=== PATIENT | male | born 1960 | race Caucasian/White ===

== ENCOUNTER → 2016-12-10 | Outpatient (CLI) | payer OTHER ==
--- NOTE | 2016-12-10 11:13 | CT ---
EXAMINATION TYPE: CT abdomen pelvis wo con DATE OF EXAM: 12/10/2016 COMPARISON: NONE INDICATION: Renal stone DLP: 711.9 mGycm, Automated exposure control for dose reduction was used. CONTRAST: 0 mL of Omnipaque 300. Study performed without Oral Contrast TECHNIQUE: Axial images were obtained from above the diaphragm to the pubic rami in the axial plane a t 5 mm thick sections. Reconstructed images are reviewed on the computer in the coronal plane. FINDINGS: Limited CT sections are obtained the lung bases. The lung bases are clear. CT ABDOMEN: Liver: Normal Spleen: Normal Pancreas: Normal Adrenal glands: The adrenal glands are normal. Gallbladder: Normal Kidneys: No masses are evident. There is a moderate left hydronephrosis. Hydroureter is present. This extends to the mid pelvis. There is a 0.6 cm obstructing distal left ureteral stone. This is above t he ureteral vesicle junction. No cysts are present. There are inferior pole left renal stones measur ing 0.3 to 0.5 cm in size. Aorta: Vascular calcification is within the aorta. Inferior vena cava: Normal. CT PELVIS: Loops of bowel within the abdomen and pelvis are normal. There are loops of bowel which are incom pletely distended or lack oral contrast limiting their evaluation. Appendix: Normal as visualized. Urinary bladder: Normal. Genitourinary structures: Prostate contains calcification. Osseous structures: Degenerative disc changes are in the lower lumbar spine IMPRESSIONS: 1. 0.6 cm obstructing distal left ureteral stone in the left hemipelvis. Moderate left hydronephrosi s and hydroureter is present. 2. Multiple small inferior pole left renal stones measuring 0.3 to 0.5 cm in size.
== END | disposition home or self-care (01) ==
LOC: RADCTMAIN 10:32
PROVIDERS: ATTEND Nurse Practitioner
DX: N20.2 Calculus of kidney with calculus of ureter (principal); N13.4 Hydroureter
CPT/HCPCS: 74176; 87086

== ENCOUNTER → 2017-04-19 | Outpatient (CLI) | payer OTHER ==
--- NOTE | 2017-04-21 12:52 | MR ---
EXAMINATION TYPE: MR knee LT wo con DATE OF EXAM: 04/19/2017 COMPARISON: NONE HISTORY: Pain in left knee per order. Pain swelling and locking sensation for 5 years per patient. TECHNIQUE: Multiplanar, multisequence images of the knee is performed without IV contrast. FINDINGS: MEDIAL MENISCUS: Anterior horn is intact without tear. Posterior horn is blunted with triangular shap ed increased signal superior aspect extending to articular surface, posterior truncation is noted. Fi ndings are consistent with full-thickness tear. Medial extrusion of medial meniscus as seen on cosby l image 19. LATERAL MENISCUS: Anterior and posterior horns are intact without tear. CRUCIATE LIGAMENTS: The anterior and posterior cruciate ligaments are intact appeared anterior crucia te ligament shows marked increased signal mid to distal aspects near tibial insertion anteriorly. COLLATERAL LIGAMENTS: The medial collateral ligament and lateral collateral ligament complexes are in tact. There is some surrounding edema level of medial collateral ligament particularly deeper fibers near level of the extruded meniscus. EXTENSOR MECHANISM: Visualized quadriceps and patellar tendons are intact. EFFUSION: There is partial visualization of at least moderate size suprapatellar joint effusion. POPLITEAL CYST: There is moderate to large size popliteal/garza cyst measuring 6 cm long axis sagitta l image 20. TRICOMPARTMENT SPACES: There is advanced joint space loss medial tibiofemoral compartment with mild-t o-moderate spurring. There is moderate joint space loss with moderate spurring patellofemoral compart ment. There is ruwz-nv-[id number] joint space loss and spurring lateral tibiofemoral compartment. CARTILAGE: There is full thickness chondromalacia patella involving the posterior patellar pole. Ther e is full-thickness cartilaginous loss medial tibiofemoral compartment seen best sagittal image 21. BONE MARROW SIGNAL: There is heterogeneous increased T2 signal consistent with osseous contusion or b one marrow edema medial tibiofemoral compartment. Some minor reactive changes posterior patellar pole are seen at areas of full-thickness cartilaginous loss. OTHER: No additional significant abnormality is appreciated. IMPRESSION: 1. There is background significant degenerative changes with moderate to advanced degenerative change s patellofemoral compartment with full thickness chondromalacia patella and more prominent advanced d egenerative changes medial tibiofemoral compartment with full-thickness cartilaginous loss and reacti ve osseous contusion/bone marrow edema involving distal femoral condyle and medial tibial plateau. 2. There is complex full-thickness tear posterior horn of medial meniscus may be on basis of advanced degenerative change. 3. Mild MCL sprain injury. 4. Moderate to large suprapatellar joint effusion. 5. Myxoid degeneration ACL. 6. Moderate to large sized popliteal cyst.
== END | disposition home or self-care (01) ==
LOC: RADMRIMAIN 19:06
PROVIDERS: ATTEND Family Medicine
DX: S83.232A Complex tear of medial meniscus, current injury, left knee, initial encounter (principal); M71.22 Synovial cyst of popliteal space [Baker], left knee; M22.42 Chondromalacia patellae, left knee; M25.862 Other specified joint disorders, left knee

== ENCOUNTER 2019-01-26 18:03 | Emergency (ER) | payer OTHER ==
[2019-01-26] MEDS ORDERED: SODIUM CHLORIDE 0.9% 500 ML 500 ML IV STA ×2 (18:34→19:23)
--- NOTE | 2019-01-26 18:42 | ED ---
General Adult HPI - General Chief complaint: Urogenital Stated complaint: Kidney stones Time Seen by Provider: 01/26/19 18:15 Source: patient, RN notes reviewed Mode of arrival: ambulatory Limitations: no limitations - History of Present Illness Initial comments: This is a 58-year-old male presents emergency department with past medical history significant for kidney stones. Patient states she's been dealing with that for the last 5 years. Patient comes in today complaining of urinary retention starting an hour and half prior to arrival. Patient states become very uncomfortable. Patient states she's also been experiencing dysuria today. Patient denies any hematuria. Patient denies any frequency. She states he is still able to urinate a little but very little recent denies any fever chills per patient denies any flank pain. Patient denies any back pain. Patient states this is not normally has a kidney stone to have urinary retention. Patient denies any nausea vomiting or diarrhea. - Related Data Home Medications Medication Instructions Recorded Confirmed Atorvastatin [Lipitor] 80 mg PO DAILY 01/26/19 01/26/19 L.acidoph,Paracasei, B.lactis 1 cap PO DAILY 01/26/19 01/26/19 [Probiotic] amLODIPine BESYLATE/BENAZEPRIL 1 cap PO DAILY 01/26/19 01/26/19 [amLODIPine BESYLATE/BENAZEPRIL 10-40 MG] Allergies Allergy/AdvReac Type Severity Reaction Status Date / Time No Known Allergies Allergy Verified 01/26/19 18:40 Review of Systems ROS Statement: Those systems with pertinent positive or pertinent negative responses have been documented in the HPI. ROS Other: All systems not noted in ROS Statement are negative. Past Medical History Past Medical History: GERD/Reflux, Hyperlipidemia, Hypertension Additional Past Medical History / Comment(s): KIDNEY STONES History of Any Multi-Drug Resistant Organisms: None Reported Past Surgical History: Adenoidectomy, Tonsillectomy Additional Past Surgical History / Comment(s): SURG JI HANDS; COLONOSCOPY Past Anesthesia/Blood Transfusion Reactions: No Reported Reaction Past Psychological History: No Psychological Hx Reported Smoking Status: Former smoker Past Alcohol Use History: Occasional Past Drug Use History: None Reported General Exam - General Exam Comments Initial Comments: GENERAL: Patient is well-developed and well-nourished. Patient is nontoxic and well- hydrated and is in mild distress. ENT: Neck is soft and supple. No significant lymphadenopathy is noted. Neck has full range of motion without eliciting any pain. EYES: The sclera were anicteric and conjunctiva were pink and moist. Extraocular movements were intact and pupils were equal round and reactive to light. Ey elids were unremarkable. PULMONARY: Unlabored respirations. Good breath sounds bilaterally. No audible rales rhonchi or wheezing was noted. CARDIOVASCULAR: There is a regular rate and rhythm without any murmurs gallops or rubs. ABDOMEN: Soft and nontender with normal bowel sounds. No palpable organomegaly was noted. There is no palpable pulsatile mass. SKIN: Skin is clear with no lesions or rashes and otherwise unremarkable. NEUROLOGIC: Patient is alert and oriented x3. Cranial nerves II through XII are grossly intact. Motor and sensory are also intact. Normal speech, volume and content. Symmetrical smile. MUSCULOSKELETAL: Normal extremities with adequate strength and full range of motion. No lower extremity swelling or edema. No calf tenderness. LYMPHATICS: No significant lymphadenopathy is noted PSYCHIATRIC: Normal psychiatric evaluation. Limitations: no limitations Course Vital Signs 01/26/19 18:13 Temperature 97.8 F Pulse Rate 83 Respiratory 16 Rate Blood Pressure 158/86 O2 Sat by Pulse 99 Oximetry Medical Decision Making - Medical Decision Making CT of the abdomen and pelvis shows a left hydroureter. Patient also has a stone which could either be in the left ureterovesicular junction or in the bladder. Clinically it appears that it's in the bladder because he is able to urinate and then suddenly he is unable to urinate and then later he is able to urinate again and then suddenly midstream is unable to urinate. - Lab Data Result diagrams: 01/26/19 18:25 01/26/19 18:25 Lab Results 01/26/19 01/26/19 01/26/19 Range/Units 18:25 18:25 Unknown WBC 9.4 (3.8-10.6) k/uL RBC 3.72 L (4.30-5.90) m/uL Hgb 12.5 L (13.0-17.5) gm/dL Hct 34.9 L (39.0-53.0) % MCV 93.8 (80.0-100.0) fL MCH 33.7 (25.0-35.0) pg MCHC 36.0 (31.0-37.0) g/dL RDW 12.4 (11.5-15.5) % Plt Count 397 (150-450) k/uL Neutrophils % 56 % Lymphocytes % 35 % Monocytes % 5 % Eosinophils % 2 % Basophils % 0 % Neutrophils # 5.2 (1.3-7.7) k/uL Lymphocytes # 3.3 (1.0-4.8) k/uL Monocytes # 0.5 (0-1.0) k/uL Eosinophils # 0.2 (0-0.7) k/uL Basophils # 0.0 (0-0.2) k/uL Sodium 137 (137-145) mmol/L Potassium 4.1 (3.5-5.1) mmol/L Chloride 100 (98-107) mmol/L Carbon Dioxide 23 (22-30) mmol/L Anion Gap 14 mmol/L BUN 20 (9-20) mg/dL Creatinine 1.42 H (0.66-1.25) mg/dL Est GFR (CKD-EPI)AfAm 62 (>60 ml/min/1.73 sqM) Est GFR (CKD-EPI)NonAf 54 (>60 ml/min/1.73 sqM) Glucose 105 H (74-99) mg/dL Calcium 9.8 (8.4-10.2) mg/dL Total Bilirubin 0.4 (0.2-1.3) mg/dL AST 30 (17-59) U/L ALT 33 (21-72) U/L Alkaline Phosphatase 108 (38-126) U/L Total Protein 8.4 H (6.3-8.2) g/dL Albumin 4.8 (3.5-5.0) g/dL Amylase 49 (30-110) U/L Lipase 173 (23-300) U/L Urine Color Light Yellow Urine Appearance Clear (Clear) Urine pH 5.0 (5.0-8.0) Ur Specific Hancock 1.005 (1.001-1.035) Urine Protein Trace H (Negative) Urine Glucose (UA) Negative (Negative) Urine Ketones Negative (Negative) Urine Blood Small H (Negative) Urine Nitrite Negative (Negative) Urine Bilirubin Negative (Negative) Urine Urobilinogen <2.0 (<2.0) mg/dL Ur Leukocyte Esterase Trace H (Negative) Urine RBC 2 (0-5) /hpf Urine WBC 3 (0-5) /hpf Amorphous Sediment Rare H (None) /hpf Urine Bacteria Occasional H (None) /hpf Hyaline Casts 3 H (0-2) /lpf Urine Mucus Occasional H (None) /hpf Disposition Clinical Impression: Kidney stone Disposition: HOME SELF-CARE Condition: Good Instructions (If sedation given, give patient instructions): Kidney Stones (ED) Is patient prescribed a controlled substance at d/c from ED?: No Referrals: Issac Barrera MD [STAFF PHYSICIAN] - 01/27/19 Time of Disposition: 21:01
[2019-01-26 18:53] LABS: Amorphous Sediment,Urine Rare /hpf; Appearance,Urine Clear (Clear); Bacteria,Urine Occasional /hpf; Bilirubin,Urine Negative (Negative); Blood,Urine Small (Negative); Color,Urine Light Yellow; Glucose,Urine (UA) Negative (Negative); Hyaline Casts,Urine 3 /lpf (0-2); Ketones,Urine Negative (Negative); Leukocyte Esterase,Urine Trace (Negative); Mucus,Urine Occasional /hpf; Nitrite,Urine Negative (Negative); Protein,Urine Trace (Negative); RBC,Urine 2 /hpf (0-5); Specific Gravity,Urine 1.005 (1.001-1.035); Urobilinogen,Urine <2.0 mg/dL (<2.0); WBC,Urine 3 /hpf (0-5)
[2019-01-26 19:31] LABS: Basophils % (A) 0 %; Eosinophils # (A) 0.2 k/uL (0-0.7); Eosinophils % (A) 2 %; HCT 34.9 % (39.0-53.0); HGB 12.5 gm/dL (13.0-17.5); Lymphocytes # (A) 3.3 k/uL (1.0-4.8); Lymphocytes % (A) 35 %; MCH 33.7 pg (25.0-35.0); MCV 93.8 fL (80.0-100.0); Mean Platelet Volume 5.3; Monocytes # (A) 0.5 k/uL (0-1.0); Monocytes % (A) 5 %; Neutrophils # (A) 5.2 k/uL (1.3-7.7); Neutrophils % (A) 56 %; Platelet Count 397 k/uL (150-450); RBC 3.72 m/uL (4.30-5.90); RDW 12.4 % (11.5-15.5); WBC 9.4 k/uL (3.8-10.6)
[2019-01-26 19:39] LABS: Albumin 4.8 g/dL (3.5-5.0); Calcium 9.8 mg/dL (8.4-10.2); Potassium 4.1 mmol/L (3.5-5.1); Total Bilirubin 0.4 mg/dL (0.2-1.3); Total Protein 8.4 g/dL (6.3-8.2)
--- NOTE | 2019-01-26 20:44 | CT ---
EXAMINATION TYPE: CT abdomen pelvis wo con DATE OF EXAM: 01/26/2019 COMPARISON: 12/10/2016 HISTORY: Unable to urinate CT DLP: 781.3 mGycm Automated exposure control for dose reduction was used. TECHNIQUE: Helical acquisition of images was performed from the lung bases through the pelvis. FINDINGS: Lung bases are clear. There is no pleural effusion. Heart size is normal. Liver spleen pancreas gallbladder appear normal. Bile ducts are not dilated. There is no adrenal mass. Kidneys have normal size and contour. There is left-sided hydronephrosis an d hydroureter. There is 7 mm calculus at the left ureterovesical junction. Bladder distends smoothly. There is no inguinal hernia. There is no free fluid in the pelvis. Appendix appears normal. There is very slight fullness also of the right renal pelvis but no obstructing calculus seen. There is no mesenteric edema. There is no ascites or free air. There is no sign of a bowel obstructio n. There is small umbilical hernia that contains fat. Lumbar vertebra have normal alignment. There is no compression fracture. Posterior elements are intac t. Bony pelvis is intact. IMPRESSION: THERE IS OBSTRUCTING CALCULUS AT THE LEFT URETEROVESICAL JUNCTION WITH LEFT-SIDED HYDRONEPHROSIS AND HYDROURETER. THERE IS 4 MM CALCULUS POSTERIOR LEFT KIDNEY.
[2019-01-26 21:54] VITALS: BP 152/94; PULSE 91; RESP 18; TEMP 98.1
== END 2019-01-26 21:45 | disposition home or self-care (01) ==
LOC: EC 18:03
DX: N20.0 Calculus of kidney (principal); N13.4 Hydroureter; E78.5 Hyperlipidemia, unspecified; Z79.899 Other long term (current) drug therapy; Z87.891 Personal history of nicotine dependence
CPT/HCPCS: 36415; 51701; 51798; 74176; 80053; 81001; 82150; 83690; 85025; 96360; 96361; 99284

== ENCOUNTER 2022-02-19 10:59 | Day surgery (SDC) | payer OTHER ==
[~2022-02-19 10:59] MED LIST: LACTATED RINGERS 1,000 ML IV SCH
--- NOTE | 2022-02-19 12:06 | P.GSHP ---
History of Present Illness H&P Date: 02/19/22 Chief Complaint: Screening colonoscopy This 62-year-old male who presents today for screening colonoscopy. Patient denies a significant GI complaints. Past Medical History Past Medical History: GERD/Reflux, Hyperlipidemia, Hypertension Additional Past Medical History / Comment(s): KIDNEY STONES History of Any Multi-Drug Resistant Organisms: None Reported Past Surgical History: Adenoidectomy, Joint Replacement, Tonsillectomy Additional Past Surgical History / Comment(s): SURG JI HANDS; COLONOSCOPY lft knee replacement Past Anesthesia/Blood Transfusion Reactions: No Reported Reaction Smoking Status: Former smoker Medications and Allergies Home Medications Medication Instructions Recorded Confirmed Type Atorvastatin [Lipitor] 80 mg PO DAILY 01/26/19 02/15/22 History amLODIPine BESYLATE/BENAZEPRIL 1 cap PO DAILY 01/26/19 02/15/22 History [amLODIPine BESYLATE/BENAZEPRIL 10-40 MG] Aspirin [Adult Low Dose Aspirin EC] 81 mg PO DAILY 02/15/22 02/15/22 History Isosorbide Mononitrate ER [Imdur] 30 mg PO DAILY 02/15/22 02/15/22 History Omeprazole [PriLOSEC] 40 mg PO DAILY 02/15/22 02/15/22 History allopurinoL 300 mg PO DAILY PRN 02/15/22 02/15/22 History carvediloL [Coreg] 3.125 mg PO DAILY 02/15/22 02/15/22 History Allergies Allergy/AdvReac Type Severity Reaction Status Date / Time No Known Allergies Allergy Verified 02/19/22 11:55 Surgical - Exam - General well developed, well nourished, no distress - Eyes PERRL - ENT normal pinna - Neck no masses - Respiratory normal expansion - Cardiovascular Rhythm: regular - Abdomen Abdomen: soft, non tender Assessment and Plan Assessment: We'll perform screening colonoscopy
[2022-02-19 12:13] VITALS: RESP 18; TEMP 99.1
[2022-02-19] MEDS ORDERED: PROPOFOL 10 MG/ML 20 ML VIAL IV ONE (12:25)
--- NOTE | 2022-02-19 12:35 | P.OP ---
Date of Procedure: 02/19/22 Preoperative Diagnosis: Screening colonoscopy Postoperative Diagnosis: Diverticulosis Procedure(s) Performed: Colonoscopy Anesthesia: MAC Surgeon: Chicho House Pathology: none sent Condition: stable Disposition: PACU Description of Procedure: The patient's placed on the endoscopy table in the lateral position. She received IV sedation. Digital rectal exam was performed. This revealed no abnormalities. The flexible colonoscope was then placed patient anus and passed throughout the entire colon. The ileocecal valve was visualized. The cecum, ascending and transverse colon appeared normal. In the descending and sigmoid colon there was mild diverticular changes. Scope was brought back the rectum and this appeared normal. Scope withdrawn for patient.
[2022-02-19 12:59] VITALS: BP 140/72; PULSE 72
== END 2022-02-19 13:09 | disposition home or self-care (01) ==
LOC: ORWHC2ENDO 10:59
PROVIDERS: ATTEND Surgery
DX: Z12.11 Encounter for screening for malignant neoplasm of colon (principal); K57.30 Diverticulosis of large intestine without perforation or abscess without bleeding; K21.9 Gastro-esophageal reflux disease without esophagitis; I10 Essential (primary) hypertension; E78.5 Hyperlipidemia, unspecified; Z87.442 Personal history of urinary calculi; Z79.899 Other long term (current) drug therapy; Z98.890 Other specified postprocedural states; Z96.652 Presence of left artificial knee joint; Z87.891 Personal history of nicotine dependence; Z79.82 Long term (current) use of aspirin
CPT/HCPCS: J2704; G0121

== ENCOUNTER → 2022-03-05 | Outpatient (CLI) | payer OTHER ==
--- NOTE | 2022-03-05 11:00 | CA ---
Stress Echo Report Geraldo Kaur Age: 62 Gender: M : 1960 Exam Date: 03/05/2022 09:20 Exam Location: [facility] Ht (in): 68 Wt (lb): 190 Ordering Physician: Cristy Corona DO Referring Physician: CRISTY CORONA,, Crab Steamer: Miri Alvarado RDCS Technologist Procedure CPT: Indication: R07.9 CHEST PAIN ICD-9 Codes: Rhythm: Patient History: Vertigo Cardiac Medications: Medications in past 24 hours: Contrast: Stress Results Protocol: Sal Total dose(mL): Exercise Duration (min:sec): Max ST Depression (mm): Angina Score: Kenny Score: METS: 7.0 Resting HR: 76 Resting BP: 133 / 57 Peak HR: 144 Peak BP: 217 / 59 Max Predicted HR: 156 92 % Max Predicted HR Target HR: 133 Double Product: 01471 Stress Summary: BP Response: Reason for Termination: Reached target heart rate or work-load Cardiac Symptoms: None ECG Analysis Resting ECG: Stress ECG: Arrhythmia: Echo Analysis Resting Echo: Peak Echo Analysis: MEASUREMENTS (Male/Female) Normal Values CONCLUSIONS Patient underwent exercise stress echo with a Sal protocol treadmill stress test. Patient exercised into Stage 2 for a total of 5 minutes 18 seconds reaching a total of 7.0 METS. Patient's maximum heart rate was 144 which represented 92 % age- predicted maximum heart rate. Stress EKG portion: At baseline patient's EKG showed normal sinus rhythm, normal axis, no significant ST or T wave abnormalities. At peak exercise, EKG showed no significant change from baseline. Stress echo portion: 2-D echocardiogram was performed in the parasternal long, personal short, apical 2 and apical four-chamber views at rest, peak exercise and in recovery. At baseline, echocardiogram showed left ventricular ejection fraction 55 % without wall motion abnormalities. With peak exercise, echocardiogram shows improvement in left ventricular ejection fraction, increase contractility, decrease in left ventricular end systolic dimension without wall motion abnormalities consistent with a normal response to exercise. Conclusions: 1. Normal EKG and echo response to exercise without evidence of inducible ischemia. 2. Fair exercise capacity. Dr. Dano Abernathy DO (Electronically Signed) Final Date: 05 March 2022 11:00
== END | disposition home or self-care (01) ==
LOC: RADNMMAIN 08:50
PROVIDERS: ATTEND Family Medicine
DX: R07.9 Chest pain, unspecified (principal)
CPT/HCPCS: 93351

== ENCOUNTER → 2023-03-25 | Outpatient (CLI) | payer MEDICARE ==
--- NOTE | 2023-03-26 11:48 | CA ---
Transthoracic Echo Report Name: Geraldo Kaur Age: 63 Gender: M : 1960 Exam Date: 03/25/2023 11:21 Exam Location: [facility] Ht (in): 68 Wt (lb): 212 Ordering Physician: Cristy Tapia DO Attending/Referring Phys: Amber Mireles [facility] [address] Administrator Veronika Carey [facility] Procedure CPT: Indications: I49.1 ATRIAL PREMATURE DEPOLARIZATION Cardiac Hx: Technical Quality: Fair Contrast 1: Total Dose (mL): Contrast 2: Total Dose (mL): MEASUREMENTS (Male / Female) Normal Values 2D ECHO LV Diastolic Diameter PLAX 4.9 cm 4.2 - 5.9 / 3.9 - 5.3 cm LV Systolic Diameter PLAX 3.1 cm IVS Diastolic Thickness 1.0 cm 0.6 - 1.0 / 0.6 - 0.9 cm LVPW Diastolic Thickness 1.1 cm 0.6 - 1.0 / 0.6 - 0.9 cm LV Relative Wall Thickness 0.4 LVOT Diameter 2.1 cm Ascending Aorta Diameter 2.9 cm M-MODE Aortic Root Diameter MM 2.9 cm LA Systolic Diameter MM 4.2 cm LA Ao Ratio MM 1.4 AV Cusp Separation MM 2.1 cm DOPPLER AV Peak Velocity 147.4 cm/s AV Peak Gradient 8.7 mmHg AV Mean Velocity 107.0 cm/s AV Mean Gradient 5.1 mmHg AV Velocity Time Integral 30.1 cm LVOT Peak Velocity 120.5 cm/s LVOT Peak Gradient 5.8 mmHg LVOT Velocity Time Integral 25.1 cm LVOT Stroke Volume 83.5 cm??? LVOT Stroke Volume Index 39.9 ml/m??? LVOT Cardiac Index 2798.3 cm???/min???m??? AV Area Cont Eq vti 2.8 cm??? AV Area Cont Eq pk 2.7 cm??? Mitral E Point Velocity 76.6 cm/s Mitral A Point Velocity 95.5 cm/s Mitral E to A Ratio 0.8 MV Deceleration Time 152.4 ms LV E' Lateral Velocity 8.4 cm/s Mitral E to LV E' Lateral Ratio 9.1 LV E' Septal Velocity 7.7 cm/s Mitral E to LV E' Septal Ratio 9.9 Right Atrial Pressure 3.0 mmHg FINDINGS Left Ventricle Mildly increased posterior wall thickness. Left ventricular cavity size normal. Normal left ventricular systolic function with no obvious regional wall motion abnormalities. Left ventricular ejection fraction is estimated at 55-60%. Right Ventricle Mild right ventricular dilatation. Right Atrium Moderate right atrial dilatation. Left Atrium Normal left atrial size. Mitral Valve Structurally normal mitral valve. No mitral regurgitation. Aortic Valve Trileaflet aortic valve. No aortic valve stenosis or regurgitation. Tricuspid Valve Structurally normal tricuspid valve. No tricuspid regurgitation. Pulmonic Valve Pulmonic valve not well visualized. Pericardium Minimal pericardial effusion (normal variant). Aorta Normal size aortic root and proximal ascending aorta. CONCLUSIONS Left ventricular ejection fraction is estimated at 55-60%. No obvious regional wall motion abnormalities. Mild LVH No major valvular abnormality RVSP could not be estimated No pericardial effusion Previewed by: Dr Antonio Aaron (Electronically Signed) Final Date: 26 March 2023 11:47
== END | disposition home or self-care (01) ==
LOC: RADECHMAIN 11:04
PROVIDERS: ATTEND Family Medicine
DX: I49.1 Atrial premature depolarization (principal)
CPT/HCPCS: 93306

== ENCOUNTER → 2023-05-01 | Outpatient (CLI) | payer MEDICARE ==
[~2023-05-01] MED LIST changes: -LACTATED RINGERS 1,000 ML IV SCH; +REGADENOSON 0.4 MG/5 ML SYRINGE IV PRN
--- NOTE | 2023-05-01 11:31 | CA ---
Lexiscan Nuclear Stress Test Report Name: Geraldo Kaur Exam Date: 05/01/2023 10:05 Exam Location: [place] Stress Ht (in): 68 Wt (lb): 212 BSA: 2.10 Ordering Phys: Cristy Corona DO Referring Phys: CRISTY CORONA,, Technologist: Yuval Shankar Age: 63 Gender: M : 1960 Procedure CPT: Indications: R00.2 palpitations ICD-10 Codes: Patient History: Medications: ISOSORBIDE, CARVEDILOL, AMLODIPINE, ATORVASTATIN Meds past 24 hrs: Pretest Chest Pain: STRESS TEST Lexiscan Protocol Exercise Duration (min:sec): 02:[address] Depressions (mm): Angina Score: Kenny Score: Resting HR (bpm): 64 Peak HR (bpm): 92 Resting BP (mmHg): 158 / 76 Peak BP (mmHg): 159 / 62 MPHR: 155 Target HR: 132 % MPHR: 59 METS: 1.0 Total Dose: Peak Dose: Atropine: Double Product: 95122 BP Response: Stress Termination: PROTOCOL COMPLETE Stress Symptoms: NO SYMPTOMS Stress Summary: ECG ANALYSIS Resting ECG: Stress ECG: CONCLUSIONS No EKG evidence for ischemia Elevated blood pressures normal heart rates Nuclear report separately Dr. Quan Evans MD (Electronically Signed) Final Date: 01 May 2023 11:31
--- NOTE | 2023-05-01 15:48 | NM ---
EXAMINATION TYPE: NM stress lexiscan cardiolite DATE OF EXAM: 05/01/2023 COMPARISON: NONE CLINICAL INDICATION: Male, 63 years old with history of R00.2 PALPITATIONS; TECHNIQUE: After the intravenous administration of 9.38 mCi Tc 99m Sestamibi - Cardiolite resting SP ECT images acquired 45 minutes post injection. The patient received 0.4mg Lexiscan, 24.6 mCi Tc 99m Sestamibi - Stress images obtained [address] injection FINDINGS: Review of stress and rest SPECT images demonstrates fixed defect along the inferior wall which become s accentuated at the inferior apical wall. Gated analysis shows normal wall motion with an estimated left ventricular ejection fraction of 64 %. TID is calculated at 0.98, within normal limits. IMPRESSION: Fixed defect along the inferior wall. Unclear if this corresponds to prominent diaphragmatic attenuat ion artifact. Correlate for history of prior inferior wall infarct. Unable to exclude a small area of laci-infarct ischemia at the apical inferior wall.
== END | disposition home or self-care (01) ==
LOC: RADNMMAIN 08:04
PROVIDERS: ATTEND Family Medicine
DX: R03.0 Elevated blood-pressure reading, without diagnosis of hypertension (principal); I47.20 Ventricular tachycardia, unspecified; R00.2 Palpitations
CPT/HCPCS: 93017; 78452; A9500; J2785

== ENCOUNTER 2024-05-02 20:18 | Observation (INO) | payer MEDICARE ==
--- NOTE | 2024-05-02 20:28 | ED ---
Neuro HPI - General Chief Complaint: Neuro Symptoms/Deficit Stated Complaint: dizziness, numb extremities Time Seen by Provider: 05/02/24 20:27 Source: patient, family, RN notes reviewed, old records reviewed Mode of arrival: ambulatory Limitations: no limitations - History of Present Illness Is the patient presenting with stroke symptoms?: Yes -: hour(s) (5) Initial Comments: This is a 64-year-old male to the ER for evaluation patient presents today for evaluation regards to weakness confusion and not feeling well while at a family birthday libertarian. Patient. Sent to the emergency department today for evaluation of possible stroke as he went home and took his blood pressure being severely elevated. Patient is complaining of numbness and tingling of the extremities history of high blood pressure Location: speech, left arm, right arm, left leg, right leg Place: home Severity: mild Quality: numb, tingling Improves With: none Worsens With: none Context: gradual onset Associated Symptoms: confusion, malaise, weakness Treatments Prior to Arrival: none - Related Data Home Medications: Home Medications Medication Instructions Recorded Confirmed Atorvastatin [Lipitor] 80 mg PO DAILY 01/26/19 02/15/22 amLODIPine BESYLATE/BENAZEPRIL 1 cap PO DAILY 01/26/19 02/15/22 [amLODIPine BESYLATE/BENAZEPRIL 10-40 MG] Aspirin [Adult Low Dose Aspirin EC] 81 mg PO DAILY 02/15/22 02/15/22 Isosorbide Mononitrate ER [Imdur] 30 mg PO DAILY 02/15/22 02/15/22 Omeprazole [PriLOSEC] 40 mg PO DAILY 02/15/22 02/15/22 allopurinoL 300 mg PO DAILY PRN 02/15/22 02/15/22 carvediloL [Coreg] 3.125 mg PO DAILY 02/15/22 02/15/22 Allergies/Adverse Reactions: Allergies Allergy/AdvReac Type Severity Reaction Status Date / Time No Known Allergies Allergy Verified 05/02/24 20:24 Review of Systems ROS Statement: Those systems with pertinent positive or pertinent negative responses have been documented in the HPI. ROS Other: All systems not noted in ROS Statement are negative. General Exam Limitations: no limitations General appearance: alert, in no apparent distress Head exam: Present: atraumatic, normocephalic, normal inspection Eye exam: Present: normal appearance, PERRL, EOMI. Absent: scleral icterus, conjunctival injection, periorbital swelling ENT exam: Present: normal exam, mucous membranes moist Neck exam: Present: normal inspection. Absent: tenderness, meningismus, lymphadenopathy Respiratory exam: Present: normal lung sounds bilaterally. Absent: respiratory distress, wheezes, rales, rhonchi, stridor Cardiovascular Exam: Present: regular rate, normal rhythm, normal heart sounds. Absent: systolic murmur, diastolic murmur, rubs, gallop, clicks GI/Abdominal exam: Present: soft, normal bowel sounds. Absent: distended, tenderness, guarding, rebound, rigid Extremities exam: Present: normal inspection, full ROM, normal capillary refill. Absent: tenderness, pedal edema, joint swelling, calf tenderness Back exam: Present: normal inspection Neurological exam: Present: alert, oriented X3, CN II-XII intact Psychiatric exam: Present: normal affect, normal mood Skin exam: Present: warm, dry, intact, normal color. Absent: rash Stroke MDM - Lab Data Result diagrams: 05/02/24 20:46 Lab Results 05/02/24 05/02/24 05/02/24 Range/Units 20:43 20:46 20:46 WBC 5.5 (3.8-10.6) k/uL RBC 3.89 L (4.30-5.90) m/uL Hgb 13.0 (13.0-17.5) gm/dL Hct 37.0 L (39.0-53.0) % MCV 95.2 (80.0-100.0) fL MCH 33.3 (25.0-35.0) pg MCHC 35.0 (31.0-37.0) g/dL RDW 12.6 (11.5-15.5) % Plt Count 324 (150-450) k/uL MPV 6.2 Neutrophils % 64 % Lymphocytes % 28 % Monocytes % 5 % Eosinophils % 2 % Basophils % 0 % Neutrophils # 3.5 (1.3-7.7) k/uL Lymphocytes # 1.5 (1.0-4.8) k/uL Monocytes # 0.3 (0-1.0) k/uL Eosinophils # 0.1 (0-0.7) k/uL Basophils # 0.0 (0-0.2) k/uL PT 10.4 (10.0-12.5) sec INR 0.9 (<1.2) APTT 22.7 (22.0-30.0) sec POC Glucose (mg/dL) 180 H (70-110) mg/dL POC Glu Internet Marketing Assistant HILARY Schmitt - NIH Stroke Scale 1a. Level of Consciousness: (0) alert 1b. LOC Questions: (0) answers correctly 1c. LOC Commands: (0) performs tasks correctly 2. Best Gaze: (0) normal 3. Visual: (0) no visual loss 4. Facial Palsy: (0) normal symmetrical movement 5a. Motor Arm Left: (0) no drift 5b. Motor Arm Right: (0) no drift 6a. Motor Leg Left: (0) no drift 6b. Motor Leg Right: (0) no drift 7. Limb Ataxia: (0) absent 8. Sensory: (0) normal 9. Best Language: (0) no aphasia 10. Dysarthria: (0) normal 11. Extinction/Inattention: (0) no abnormality - Thrombolytic Inclusion/Exclusion Thrombolytic Exclusion Criteria: Symptom Onset > 4.5 Hours - Medical Decision Making 64 male will be admitted for TIA symptoms, early CVA - Radiology Data Radiology results: report reviewed (CT brain and CT angio head neck negative for acute disease), image reviewed - EKG Data -: EKG Interpreted by Me (EKG is sinus tachycardia 111 DE 198 QRS 90 QTc 383) Past Medical History Past Medical History: GERD/Reflux, Hyperlipidemia, Hypertension Additional Past Medical History / Comment(s): KIDNEY STONES History of Any Multi-Drug Resistant Organisms: None Reported Past Surgical History: Adenoidectomy, Joint Replacement, Tonsillectomy Additional Past Surgical History / Comment(s): SURG JI HANDS; COLONOSCOPY lft knee replacement Past Anesthesia/Blood Transfusion Reactions: No Reported Reaction Past Psychological History: No Psychological Hx Reported Smoking Status: Former smoker Course Vital Signs 05/02/24 05/02/24 20:19 21:27 Temperature 97.7 F 98.7 F Pulse Rate 122 H 107 H Respiratory 18 18 Rate Blood Pressure 170/86 152/84 O2 Sat by Pulse 96 95 Oximetry - Reevaluation(s) Reevaluation #1: 05/02/24 20:28 Reviewed Reevaluation #2: 05/02/24 21:34 Patient symptoms are improving 05/02/24 21:34 Blood pressures improving Reevaluation #3: 05/02/24 21:34 Patient informed of results questions answered Reevaluation #4: Was pt. sent in by a medical professional or institution (AIMEE Suarez, DIRECTOR TRADE, urgent care, hospital, or long-term...) When possible be specific @ -no Did you speak to anyone other than the patient for history (EMS, parent, family, police, friend...)? What history was obtained from this source @ -no Did you review nursing and triage notes (agree or disagree)? Why? @ -agree Are old charts reviewed (outside hosp., previous admission, EMS record, old EKG, old radiological studies, urgent care reports/EKG's, long-term records)? Report findings @ -yes Differential Diagnosis (chest pain, altered mental status, abdominal pain women, abdominal pain men, vaginal bleeding, weakness, fever, dyspnea, syncope, headache, dizziness, GI bleed, back pain, seizure, CVA, palpatations, mental health, musculoskeletal)? @ -prior EKG interpreted by me (3pts min.). @ -yes X-rays interpreted by me (1pt min.). @ -yes negative for acute disease CT interpreted by me (1pt min.). @ -no U/S interpreted by me (1pt. min.). @ -no What testing was considered but not performed or refused? (CT, X-rays, U/S, labs)? Why? @ -none What meds were considered but not given or refused? Why? @ -none Did you discuss the management of the patient with other professionals (professionals i.e. AIMEE Suarez, DIRECTOR TRADE, lab, RT, psych nurse, social media marketing manager, crimping press operator, teacher, district resource officer, wrapper caser)? Give summary @ -no Was smoking cessation discussed for >3mins.? @ -no Was critical care preformed (if so, how long)? @ -no Were there social determinants of health that impacted care today? How? (Homelessness, low income, unemployed, alcoholism, drug addiction, tr ansportation, low edu. Level, literacy, decrease access to med. care, alf, rehab)? @ -none Was there de-escalation of care discussed even if they declined (Discuss DNR or withdrawal of care, Hospice)? DNR status @ -no What co-morbidities impacted this encounter? (DM, HTN, Smoking, COPD, CAD, Canc er, CVA, ARF, Chemo, Hep., AIDS, mental health diagnosis, sleep apnea, morbid obesity)? @ -none Was patient admitted / discharged? Hospital course, mention meds given and route, prescriptions, significant lab abnormalities, going to OR and other pertinent info. @ - Undiagnosed new problem with uncertain prognosis? @ -no Drug Therapy requiring intensive monitoring for toxicity (Heparin, Nitro, Insulin, Cardizem)? @ -no Were any procedures done? @ -no Diagnosis/symptom? @ - Acute, or Chronic, or Acute on Chronic? @ -Acute Uncomplicated (without systemic symptoms) or Complicated (systemic symptoms)? @ -Complicated Side effects of treatment? @ -no Exacerbation, Progression, or Severe Exacerbation? @ -exacerbation Poses a threat to life or bodily function? How? (Chest pain, USA, CT, pneumonia, PE, COPD, DKA, ARF, appy, cholecystitis, CVA, Diverticulitis, Homicidal, Suicidal, threat to staff... and all critical care pts) @ -yes Reevaluation #5: Differential CVA Ischemic stroke, hemorrhagic stroke, brain tumor, atypical migraine, Wernicke's encephalopathy, seizure, multiple sclerosis, meningitis, encephalitis, hypoglycemia, Guillain-Gross, electrolytes disturbance, myasthenia gravis.... This is not meant to be an all-inclusive list - Consultations Consultation #1: Spoke with [facility] who agrees to admit this patient Disposition Clinical Impression: Transient cerebral ischemia, Hypertension Disposition: ADMITTED IP TO THIS [facility] Condition: Serious Is patient prescribed a controlled substance at d/c from ED?: No Referrals: Cristy Tapia DO [Primary Care Provider] - 1-2 days Time of Disposition: 21:30
[2024-05-02 20:45] LABS: Glucose,Whole Blood 180 mg/dL (70-110)
[2024-05-02 21:14] LABS: Basophils % (A) 0 %; Eosinophils # (A) 0.1 k/uL (0-0.7); Eosinophils % (A) 2 %; Lymphocytes # (A) 1.5 k/uL (1.0-4.8); Lymphocytes % (A) 28 %; MCH 33.3 pg (25.0-35.0); MCV 95.2 fL (80.0-100.0); Mean Platelet Volume 6.2; Monocytes # (A) 0.3 k/uL (0-1.0); Monocytes % (A) 5 %; Neutrophils # (A) 3.5 k/uL (1.3-7.7); Neutrophils % (A) 64 %; Platelet Count 324 k/uL (150-450); RBC 3.89 m/uL (4.30-5.90); RDW 12.6 % (11.5-15.5); WBC 5.5 k/uL (3.8-10.6)
--- NOTE | 2024-05-02 21:17 | CT ---
EXAMINATION TYPE: CODE STROKE: CT brain wo contr DATE OF EXAM: 05/02/2024 8:56 PM COMPARISON: 04/14/2015. CLINICAL INDICATION: Male, 64 years old with history of Neuro deficit, acute, stroke suspected, Code Stroke. Pt presents to ED for c/o elevated blood pressure, numbness to fingers and toes, and dry mout h starting about 3 hours ago. TECHNIQUE: Brain: Axial CT images of the brain were obtained with coronal and sagittal reformats created and rev iewed. Contrast used: None. Oral contrast used: None. CT DLP: 1217.6 mGycm, Automated exposure control for dose reduction was used. FINDINGS: Brain: Extra-axial spaces: No abnormal extra-axial fluid collections. Ventricular system: Within normal limits Cerebral parenchyma: No acute intraparenchymal hemorrhage or mass effect. The lanier-white junction is well differentiated. Cerebellum: Unremarkable. Mass effect: No evidence of midline shift. Intracranial vasculature: unremarkable Soft tissues: Normal. Calvarium/osseous structures: No depressed skull fracture. Paranasal sinuses and mastoid air cells: Mild scattered paranasal sinus disease. Visualized orbits: Orbital contents are intact. IMPRESSION: No acute intracranial process. [facility], , 05/02/2024 9:14 PM
--- NOTE | 2024-05-02 21:22 | XR ---
EXAMINATION TYPE: XR chest 2V DATE OF EXAM: 05/02/2024 9:13 PM COMPARISON: None CLINICAL INDICATION: Male, 64 years old with history of altered mental status; [facility] TECHNIQUE: XR chest 2V Frontal and lateral views of the chest. FINDINGS: Lungs/Pleura: There is no evidence of pleural effusion, focal consolidation, or pneumothorax. Pulmonary vascularity: Unremarkable. Heart/mediastinum: Cardiomediastinal silhouette is unremarkable. Musculoskeletal: No acute osseous pathology. Other findings: None IMPRESSION: No acute cardiopulmonary disease/process. [facility], , 05/02/2024 9:20 PM
[2024-05-02 21:30] LABS: INR 0.9 (<1.2); Partial Thromboplastin Time 22.7 sec (22.0-30.0); Prothrombin Time 10.4 sec (10.0-12.5)
[2024-05-02 21:31] LABS: ALT 20 U/L (4-49); AST 31 U/L (17-59); African American GFR (CKD) >90 (>60 ml/min/1.73 sqM); Albumin 4.5 g/dL (3.5-5.0); Alcohol <10 mg/dL; Alkaline Phosphatase 59 U/L (38-126); Anion Gap 10 mmol/L; Blood Urea Nitrogen 19 mg/dL (9-20); Calcium 9.6 mg/dL (8.4-10.2); Carbon Dioxide 24 mmol/L (22-30); Chloride 103 mmol/L (98-107); Creatine Kinase 49 U/L (55-170); Glucose 176 mg/dL (74-99); Non-African American GFR(CKD) 84 (>60 ml/min/1.73 sqM); Sodium 137 mmol/L (137-145); Total Bilirubin 0.6 mg/dL (0.2-1.3); Total Protein 7.9 g/dL (6.3-8.2)
--- NOTE | 2024-05-02 21:38 | CT ---
EXAMINATION TYPE: CT angio head neck DATE OF EXAM: 05/02/2024 9:14 PM COMPARISON: CT 25. CLINICAL INDICATION: Male, 64 years old with history of Neuro deficit, acute, stroke suspected; PHH, Code Stroke. Pt presents to ED for c/o elevated blood pressure, numbness to fingers and toes, and dry mouth starting about 3 hours ago. TECHNIQUE: Axially acquired helical CT angiogram of the head and neck was obtained with contrast. Axi al images are supplemented with 3D reconstructions and MIP images which were post-processed at an in dependent workstation. NASCET criteria used. Contrast used:65 ml mL of Isovue 370 with IV Contrast, Oral contrast used: None. CT DLP: 412 mGycm, Automated exposure control for dose reduction was used. FINDINGS: CTA HEAD: No evidence of acute intracranial hemorrhage, mass effect, or midline shift. The ventricles, sulci, a nd cisterns are unremarkable. Vertebral arteries: The vertebral arteries are patent. Vertebral artery dominance: Codominant Basilar artery: The basilar artery is intact. The basilar artery bifurcation is normal. Internal Carotid arteries: The cervical, petrous, cavernous and supraclinoid segments are normal. PETRA: Patent with no evidence of aneurysm. ACOM: Present without evidence of aneurysm. MCA: Patent with no evidence of aneurysm. QM NURSE: Patent with no evidence of aneurysm. PCOM: Hypoplastic bilaterally. Dural sinuses: Patent. CTA NECK: Right Carotid System: The common carotid artery and external carotid artery are patent. The carotid bifurcation demonstrate s no evidence of hemodynamically significant stenosis. The remaining portions of the internal carotid artery demonstrate normal size without significant narrowing. Left Carotid System: The common carotid artery and external carotid artery are patent. The carotid bifurcation demonstrate s no evidence of hemodynamically significant stenosis. The remaining portions of the internal carotid artery demonstrate normal size without significant narrowing. Vertebral arteries are patent without evidence hemodynamically significant stenosis. There is a three-vessel aortic arch. The origins of the great vessels are patent. No evidence of hemo dynamically significant stenosis. IMPRESSION: 1. No evidence of dissection of the cervical internal carotid arteries or vertebral arteries. 2. No any evidence of significant stenosis at the carotid bifurcations. 3. No evidence of intracranial high-grade stenosis or intracranial aneurysm. [facility], , 05/02/2024 9:36 PM
[2024-05-02 21:44] LABS: Potassium 4.2 mmol/L (3.5-5.1)
[2024-05-02] MEDS: LABETALOL 5 MG/ML VIAL MDV IVP STA (22:21)
[2024-05-02] MEDS: ASPIRIN 325 MG TAB PO STA (22:27)
[2024-05-02] MEDS: SODIUM CHLORIDE 0.9% 1,000 ML IV SCH (22:29)
[2024-05-02] MEDS: SODIUM CHLORIDE 0.9% 1,000 ML IV STA (22:29)
[2024-05-02] MEDS: SODIUM CHLORIDE 0.9% 500 ML 500 ML IV STA (22:30)
[2024-05-02 22:36] LABS: Appearance,Urine Clear (Clear); Bilirubin,Urine Negative (Negative); Blood,Urine Negative (Negative); Color,Urine Colorless; Glucose,Urine (UA) Negative (Negative); Ketones,Urine Negative (Negative); Leukocyte Esterase,Urine Negative (Negative); Nitrite,Urine Negative (Negative); PH, Urine 5.5 (5.0-8.0); Protein,Urine Negative (Negative); Urobilinogen,Urine <2.0 mg/dL (<2.0)
[2024-05-02 22:41] LABS: Specific Gravity,Urine 1.048 (1.001-1.035)
[2024-05-02 23:13] LABS: Amphetamine Screen,Urine Not Detected (NotDetected); Barbiturate Screen,Urine Detected (NotDetected); Benzodiazepines Screen,Urine Not Detected (NotDetected); Cocaine Screen,Urine Not Detected (NotDetected); Methadone Screen, Urine Not Detected (NotDetected); Opiate Screen,Urine Detected (NotDetected); Oxycodone Screen, Urine Not Detected (NotDetected); Phencyclidine Screen,Urine Not Detected (NotDetected); Tricyclic Antidepressant,Urine Not Detected (NotDetected); Urn Cannabinoid Scrn Detected (NotDetected)
[2024-05-03] MEDS: ASPIRIN 325 MG TAB PO SCH (08:14)
[2024-05-03 13:58] LABS: Chol/HDL Ratio 4.77 Ratio; HDL Cholesterol 53.9 mg/dL (40.00-60.00)
--- NOTE | 2024-05-03 15:56 | CA ---
Transthoracic Echo Report Name: Geraldo Kaur Age: 64 Gender: M : 1960 Exam Date: 05/03/2024 08:42 Exam Location: [place] [facility] Ht (in): 68 Wt (lb): 212 Ordering Physician: Landon Montaño DO Attending/Referring Phys: [id number], [employer] Teacher Esther Ferrara RDCS Procedure CPT: Indications: Thrombus, Transient cerebral ischemic attack, unspecified Cardiac Hx: Technical Quality: Good Contrast 1: Total Dose (mL): Contrast 2: Total Dose (mL): MEASUREMENTS (Male / Female) Normal Values 2D ECHO LV Diastolic Diameter PLAX 4.4 cm 4.2 - 5.9 / 3.9 - 5.3 cm LV Systolic Diameter PLAX 3.1 cm IVS Diastolic Thickness 1.2 cm 0.6 - 1.0 / 0.6 - 0.9 cm LVPW Diastolic Thickness 1.5 cm 0.6 - 1.0 / 0.6 - 0.9 cm LV Relative Wall Thickness 0.6 LVOT Diameter 2.2 cm LV Diastolic Volume MOD BP 108.5 cm??? 67 - 155 / 56 - 104 cm??? LV Systolic Volume MOD BP 44.6 cm??? 22 - 58 / 19 - 49 cm??? LV Ejection Fraction MOD BP 58.9 % >= 55 % LV Cardiac Index MOD BP 2375.1 cm???/min???m??? LV Diastolic Volume MOD 4C 108.6 cm??? LV Systolic Volume MOD 4C 46.4 cm??? LV Ejection Fraction MOD 4C 57.3 % LV Cardiac Index MOD 4C 2314.6 cm???/min???m??? LV Diastolic Length 4C 8.4 cm LV Systolic Length 4C 7.2 cm LV Diastolic Volume MOD 2C 99.3 cm??? LV Systolic Volume MOD 2C 39.6 cm??? LV Ejection Fraction MOD 2C 60.1 % LV Cardiac Index MOD 2C 2219.1 cm???/min???m??? LV Diastolic Length 2C 7.7 cm LV Systolic Length 2C 6.6 cm LA Volume 49.1 cm??? 18 - 58 / 22 - 52 cm??? LA Volume Index 22.5 cm???/m??? 16 - 28 cm???/m??? DOPPLER AV Peak Velocity 160.5 cm/s AV Peak Gradient 10.3 mmHg AV Mean Velocity 112.8 cm/s AV Mean Gradient 5.6 mmHg AV Velocity Time Integral 34.3 cm LVOT Peak Velocity 118.4 cm/s LVOT Peak Gradient 5.6 mmHg LVOT Velocity Time Integral 24.1 cm LVOT Stroke Volume 90.0 cm??? LVOT Stroke Volume Index 42.9 ml/m??? LVOT Cardiac Index 3344.1 cm???/min???m??? AV Area Cont Eq vti 2.6 cm??? AV Area Cont Eq pk 2.8 cm??? MV Area PHT 3.8 cm??? Mitral E Point Velocity 66.6 cm/s Mitral A Point Velocity 78.8 cm/s Mitral E to A Ratio 0.8 MV Deceleration Time 199.3 ms TR Peak Velocity 210.6 cm/s TR Peak Gradient 17.7 mmHg Right Atrial Pressure 5.0 mmHg Pulmonary Artery Systolic Pressu 22.7 mmHg Right Ventricular Systolic Press 22.7 mmHg PV Peak Velocity 105.0 cm/s PV Peak Gradient 4.4 mmHg FINDINGS Left Ventricle Left ventricular ejection fraction is estimated at 55-60 %. Mildly increased septal wall thickness. Left ventricular cavity size normal. No obvious regional wall motion abnormalities. Right Ventricle Normal right ventricular size and function. Right ventricular systolic pressure within normal limits. Right Atrium Normal right atrial size. Left Atrium Normal left atrial size. Mitral Valve Structurally normal mitral valve. No mitral stenosis. No evidence for mitral valve prolapse. Trace mitral regurgitation. Aortic Valve Trileaflet aortic valve. Aortic valve sclerosis. No aortic valve stenosis or regurgitation. Tricuspid Valve Structurally normal tricuspid valve. No tricuspid stenosis. Trace to mild tricuspid regurgitation. Pulmonic Valve Pulmonic valve not well visualized. No pulmonic stenosis. No pulmonic regurgitation. Pericardium Trace posterior pericardial effusion. Aorta Normal size aortic root and proximal ascending aorta. CONCLUSIONS Left ventricular ejection fraction is estimated at 55-60 %. No obvious regional wall motion abnormalities. Mild concentric LVH No significant valvular dysfunction Previewed by: Dr Antonio Araon (Electronically Signed) Final Date: 03 May 2024 15:55
--- NOTE | 2024-05-03 16:12 | P.CNNES ---
History of Present Illness Consult date: 05/03/24 Reason for Consult: TIA History of Present Illness: The patient is a 64-year-old male who was seen in neurologic consultation on May 03, 2024, in collaboration with Guerda Suarez, via teleneurology. History is obtained from review of the chart, the patient and his family who are present at the bedside at the time of the evaluation. The patient reports that he was at a birthday libertarian yesterday. He began to feel "disoriented, dizzy and unable to walk straight". He also noted a tingling sensation in his feet. According to the patient's , the patient did not eat or drink anything all day long. The symptoms began at approximately 3:30 PM the patient also reportedly had a dry mouth. According to the patient's , she did not notice any change in his behavior. The patient was able to drive home without difficulty. The patient's son noted that the patient looked flushed. The patient reportedly had felt off balance and had a headache in the emergency department. The patient's blood pressure was reportedly elevated at 160/80. In the emergency department, the patient reportedly had slurring of his speech. The patient feels that this was because of his extremely dry mouth. There was no reported loss of consciousness or fall. NIH stroke scale score in the emergency department was 0. The patient reports continuing to feel somewhat "off" today. He does report occasional episodes of orthostatic symptoms, when changing position. The patient reportedly started a new medication, a couple months ago. This medication is some type of muscle relaxer. The family does not know the name of this medication. Patient takes hydrocodone 3 times daily for his history of back pain. He does use marijuana on occasion, to help with sleep. Patient has no history of stroke, TIA, seizure or syncope. In the emergency department, CT scan of the brain was performed. There is no reported evidence of acute hemorrhage or infarct. CT angiogram of the head and neck revealed no signs of significant stenosis, aneurysm or large vessel occlusion. Laboratory evaluation in the emergency department revealed a slightly low red blood cell count. White count and platelets are normal. Electrolytes normal. Urinalysis is negative for infection. Urine drug screen positive for opiates, barbiturates and marijuana. Further laboratory evaluation reveals a an elevated total cholesterol of 257. Triglycerides are markedly elevated at 415. LDL direct is elevated at 153. LDL calculated is pending. HDL 53.9. At the time of this consultation, hemoglobin A1c is pending. Past Medical History Past Medical History: GERD/Reflux, Hyperlipidemia, Hypertension Additional Past Medical History / Comment(s): KIDNEY STONES, sleep apnea with machine History of Any Multi-Drug Resistant Organisms: None Reported Past Surgical History: Adenoidectomy, Joint Replacement, Tonsillectomy Additional Past Surgical History / Comment(s): SURG JI HANDS; COLONOSCOPY lft knee replacement Past Anesthesia/Blood Transfusion Reactions: No Reported Reaction Past Psychological History: No Psychological Hx Reported Smoking Status: Former smoker Past Alcohol Use History: Occasional Additional Past Alcohol Use History / Comment(s): 2 drinks per day Past Drug Use History: None Reported Additional Drug Use History / Comment(s): quit 30 yrs ago Medications and Allergies Home Medications Medication Instructions Recorded Confirmed Type Fenofibrate Nanocrystallized 145 mg PO DAILY 05/03/24 05/03/24 History [Tricor] HYDROcodone/APAP 7.5-325MG [[place] 1 tab PO TID PRN 05/03/24 05/03/24 History 7.5-325] Isosorbide Mononitrate ER [Imdur] 30 mg PO DAILY 05/03/24 05/03/24 History Metoprolol Succinate (ER) [Toprol 25 mg PO DAILY 05/03/24 05/03/24 History Xl] Pantoprazole [Protonix] 40 mg PO DAILY 05/03/24 05/03/24 History allopurinoL [Zyloprim] 300 mg PO DAILY 05/03/24 05/03/24 History amLODIPine BESYLATE/BENAZEPRIL 1 cap PO DAILY 05/03/24 05/03/24 History [amLODIPine BESYLATE/BENAZEPRIL 5-40 mg] Allergies Allergy/AdvReac Type Severity Reaction Status Date / Time No Known Allergies Allergy Verified 05/03/24 10:16 Physical Examination - Vital Signs Vital Signs: Vital Signs Temp Pulse Pulse Resp BP BP Pulse Ox 05/03/24 07:00 97.7 F 79 16 129/68 97 05/03/24 02:00 98.3 F 87 17 124/63 95 05/02/24 22:38 98 18 126/79 96 05/02/24 21:27 98.7 F 107 H 18 152/84 95 05/02/24 20:19 97.7 F 122 H 18 170/86 96 Intake and Output 05/02/24 05/03/24 05/03/24 22:59 06:59 14:59 Other: # Voids 2 Weight 96.162 kg 96.162 kg General: Patient is reclining in the bed. He is well-nourished, well-developed and in no acute distress. HEENT: Head is atraumatic, normocephalic. Fundus not visualized. There is no scleral icterus. Mucous membranes are moist. Neck: Supple without carotid bruits. Heart: Regular rate and rhythm Lungs: Clear to auscultation Extremities: Without edema Neurological examination Mental status: Patient is awake, alert and oriented x 3. His speech is clear. There is no dysarthria or aphasia. Cranial nerves: Pupils are equal at 2 mm and reactive. Visual hooker are full to confrontation. Extraocular movements are intact. There is no nystagmus. Facial sensation is intact. There is no facial asymmetry. Hearing is grossly intact. Uvula and palate are midline. Shoulder shrug is symmetric. Tongue protrudes midline. Motor: Strength is 5/5 throughout. Sensation: Intact to light touch. There is no extinction with double simultaneous stimulation. Coordination: [id number]-[id number], rapid alternating movements and fkji-fu-[id number] testing is intact. There is no pronator drift. Deep tendon reflexes: 2+/4+ in the bilateral upper extremities. Left patellar reflex is absent secondary to knee replacement. Right patellar reflex 1+/4+. He Plantar responses flexor bilaterally. Gait: Not assessed Results - Laboratory Findings CBC and BMP: 05/02/24 20:46 05/02/24 20:46 Abnormal Lab Findings: Abnormal Labs 05/02/24 05/02/24 05/02/24 20:43 20:46 20:46 RBC 3.89 L Hct 37.0 L Glucose 176 H POC Glucose (mg/dL) 180 H Creatine Kinase 49 L Ur Specific [place] Urine Opiates Screen Ur Barbiturates Screen U Marijuana (THC) Screen 05/02/24 22:20 RBC Hct Glucose POC Glucose (mg/dL) Creatine Kinase Ur Specific [place] 1.048 H Urine Opiates Screen Detected H Ur Barbiturates Screen Detected H U Marijuana (THC) Screen Detected H Assessment and Plan Assessment: 1. The patient is a 64-year-old male who presented to the emergency department with feelings of dizziness, ataxia, dry mouth and disorientation, after not eating or drinking all day long. Neurology is asked to see the patient for evaluation of possible TIA. This morning, the patient reports continuing to feel somewhat ataxic and off balance. Likely the patient's symptoms are secondary to dehydration. At this point in time, TIA cannot be specifically ruled out and still remains in the differential diagnosis 2. History of hypertension 3. History of hyperlipidemia-total cholesterol 257, triglycerides 415 4. History of back pain Plan: 1. High-dose statin should be initiated 2. Orthostatic vitals should be checked 3. Consider dietary/nutrition consultation regarding patient's habit of not eating all day 4. Check thyroid studies in regards to appetite Thank you for allowing us to participate in the care of this patient Dr. Lara will assume neurologic coverage of this patient as of May 04, 2024 Time with Patient: Greater than 30 (65 minutes were spent caring for this patient today including, obtaining a history, examining the patient, reviewing imaging, chart documentation, labs, placing orders and creating this note)
--- NOTE | 2024-05-03 17:05 | P.HPIM ---
History of Present Illness H&P Date: 05/03/24 Chief Complaint: Dizziness/numbness extremities 64-year-old male to the ER for evaluation patient presents today for evaluation regards to weakness confusion and not feeling well while at a family birthday libertarian. Patient. Sent to the emergency department today for evaluation of possible stroke as he went home and took his blood pressure being severely elevated. Patient is complaining of numbness and tingling of the extremities history of high blood pressure -NIH stroke scale score was 0 in ED -CT of the brain was done which did not reveal any acute hemorrhage or infarct -CTA head and neck was negative for significant stenosis, aneurysm or LVO Blood work completed in ED reveals a WBC of 5.5, hemoglobin of 13 and platelet count of 324, sodium 137, potassium 4.2, BUN 19, creatinine of 0.95, blood glucose of 176 Review of Systems REVIEW OF SYSTEMS: CONSTITUTIONAL: No fever, no malaise, no fatigue. HEENT: No recent visual problems or hearing problems. Denied any sore throat. CARDIOVASCULAR: No chest pain, orthopnea, PND, no palpitations, no syncope. PULMONARY: No shortness of breath, no cough, no hemoptysis. GASTROINTESTINAL: No diarrhea, no nausea, no vomiting, no abdominal pain. NEUROLOGICAL: No headaches, no weakness, no numbness. HEMATOLOGICAL: Denies any bleeding or petechiae. GENITOURINARY: Denies any burning micturition, frequency, or urgency. MUSCULOSKELETAL/RHEUMATOLOGICAL: Denies any joint pain, swelling, or any muscle pain. ENDOCRINE: Denies any polyuria or polydipsia. The rest of the 14-point review of systems is negative. Past Medical History Past Medical History: GERD/Reflux, Hyperlipidemia, Hypertension Additional Past Medical History / Comment(s): KIDNEY STONES, sleep apnea with machine History of Any Multi-Drug Resistant Organisms: None Reported Past Surgical History: Adenoidectomy, Joint Replacement, Tonsillectomy Additional Past Surgical History / Comment(s): SURG JI HANDS; COLONOSCOPY lft knee replacement Past Anesthesia/Blood Transfusion Reactions: No Reported Reaction Past Psychological History: No Psychological Hx Reported Smoking Status: Former smoker Past Alcohol Use History: Occasional Additional Past Alcohol Use History / Comment(s): 2 drinks per day Past Drug Use History: None Reported Additional Drug Use History / Comment(s): quit 30 yrs ago Medications and Allergies Home Medications Medication Instructions Recorded Confirmed Type Fenofibrate Nanocrystallized 145 mg PO DAILY 05/03/24 05/03/24 History [Tricor] HYDROcodone/APAP 7.5-325MG [[place] 1 tab PO TID PRN 05/03/24 05/03/24 History 7.5-325] Isosorbide Mononitrate ER [Imdur] 30 mg PO DAILY 05/03/24 05/03/24 History Metoprolol Succinate (ER) [Toprol 25 mg PO DAILY 05/03/24 05/03/24 History Xl] Pantoprazole [Protonix] 40 mg PO DAILY 05/03/24 05/03/24 History allopurinoL [Zyloprim] 300 mg PO DAILY 05/03/24 05/03/24 History amLODIPine BESYLATE/BENAZEPRIL 1 cap PO DAILY 05/03/24 05/03/24 History [amLODIPine BESYLATE/BENAZEPRIL 5-40 mg] Allergies Allergy/AdvReac Type Severity Reaction Status Date / Time No Known Allergies Allergy Verified 05/03/24 10:16 Physical Exam Vitals: Vital Signs Temp Pulse Pulse Resp BP BP Pulse Ox 05/03/24 07:00 97.7 F 79 16 129/68 97 05/03/24 02:00 98.3 F 87 17 124/63 95 05/02/24 22:38 98 18 126/79 96 05/02/24 21:27 98.7 F 107 H 18 152/84 95 05/02/24 20:19 97.7 F 122 H 18 170/86 96 Intake and Output 05/02/24 05/03/24 05/03/24 22:59 06:59 14:59 Other: # Voids 2 Weight 96.162 kg 96.162 kg General appearance: alert, in no apparent distress Head exam: Present: atraumatic, normocephalic, normal inspection Eye exam: Present: normal appearance, PERRL, EOMI. Absent: scleral icterus, conjunctival injection, periorbital swelling ENT exam: Present: normal exam, mucous membranes moist Neck exam: Present: normal inspection. Absent: tenderness, meningismus, lymphadenopathy Respiratory exam: Present: normal lung sounds bilaterally. Absent: respiratory distress, wheezes, rales, rhonchi, stridor Cardiovascular Exam: Present: regular rate, normal rhythm, normal heart sounds. Absent: systolic murmur, diastolic murmur, rubs, gallop, clicks GI/Abdominal exam: Present: soft, normal bowel sounds. Absent: distended, tenderness, guarding, rebound, rigid Extremities exam: Present: normal inspection, full ROM, normal capillary refill. Absent: tenderness, pedal edema, joint swelling, calf tenderness Back exam: Present: normal inspection Neurological exam: Present: alert, oriented X3, CN II-XII intact Psychiatric exam: Present: normal affect, normal mood Skin exam: Present: warm, dry, intact, normal color. Absent: rash Results CBC & Chem 7: 05/02/24 20:46 05/02/24 20:46 Labs: Abnormal Lab Results - Last 24 Hours (Table) 05/02/24 05/02/24 05/02/24 Range/Units 20:43 20:46 20:46 RBC 3.89 L (4.30-5.90) m/uL Hct 37.0 L (39.0-53.0) % Glucose 176 H (74-99) mg/dL POC Glucose (mg/dL) 180 H (70-110) mg/dL Creatine Kinase 49 L (55-170) U/L Ur Specific [place] (1.001-1.035) Urine Opiates Screen (NotDetected) Ur Barbiturates Screen (NotDetected) U Marijuana (THC) Screen (NotDetected) 05/02/24 Range/Units 22:20 RBC (4.30-5.90) m/uL Hct (39.0-53.0) % Glucose (74-99) mg/dL POC Glucose (mg/dL) (70-110) mg/dL Creatine Kinase (55-170) U/L Ur Specific [place] 1.048 H (1.001-1.035) Urine Opiates Screen Detected H (NotDetected) Ur Barbiturates Screen Detected H (NotDetected) U Marijuana (THC) Screen Detected H (NotDetected) Thrombosis Risk Factor Assmnt - Choose All That Apply Any of the Below Risk Factors Present?: Yes Each Factor Represents 1 point: Obesity (BMI >25) Other Risk Factors: Yes Each Risk Factor Represents 2 Points: Age 61-74 years Other congenital or acquired thrombophilia - If yes, enter type in comment: No Thrombosis Risk Factor Assessment Total Risk Factor Score: 3 Thrombosis Risk Factor Assessment Level: Moderate Risk Assessment and Plan Assessment: 1. Acute onset dizziness/extremity numbness -Patient had CT of the head completed in ED which was negative for any acute intracranial hemorrhage or ischemia; CTA head and neck is negative for dissection, aneurysm or LVO -Patient is admitted to telemetry; neurochecks per protocol -Permissive hypertension -Will place on IV fluid hydration in form of normal saline at rate of 100 cc an hour -Recommend 2D echo -Neurology consult in place 2. Substance abuse; urine drug screen is positive for opiates, barbiturates and marijuana; patient is currently on [place]; uses vape pens for sleep; patient denies taking any barbiturates from any source 3. Hypertension; metoprolol 25 mg daily; amlodipine/Benzepril 540 milligram daily 4. Hyperlipidemia; Tricor 145 mg daily 5. Gastroesophageal reflux disease; Protonix 40 mg daily 6. Hyperuricemia/gout; Zyloprim 300 mg daily DVT prophylaxis; SCDs CODE STATUS; full code
[2024-05-03] MEDS: ISOSORBIDE MONONITRATE ER 30 MG TAB.ER.24H PO SCH (17:11)
[2024-05-03] MEDS: allopurinoL 300 MG TAB PO SCH (17:11)
[2024-05-03] MEDS: PANTOPRAZOLE 40 MG TABLET PO SCH (17:11)
[2024-05-03] MEDS: METOPROLOL SUCCINATE (ER) 25 MG TAB.ER.24H PO SCH (17:11)
[2024-05-03] MEDS: amLODIPine 5 MG TAB PO SCH (17:11)
[2024-05-03] MEDS: lisinopriL 20 MG TAB PO SCH (17:11)
[2024-05-03 18:20] LABS: T4, Free (Free Thyroxine) 0.8 ng/dL (0.78-2.19)
[2024-05-03] MEDS: FENOFIBRATE 160 MG TAB PO SCH (20:42)
[2024-05-04] MEDS: HYDROcodone/APAP 7.5-325MG 1 EACH TAB PO PRN (02:25)
[2024-05-04 07:55] VITALS: RESP 16
[2024-05-04 09:12] LABS: BUN/Creat Ratio 13.11 Ratio (12.00-20.00); Blood Urea Nitrogen 11.8 mg/dL (9.0-27.0); Calcium 8.9 mg/dL (8.7-10.3); Carbon Dioxide 22.4 mmol/L (21.6-31.8); Chloride 107 mmol/L (96-109); Glucose 104 mg/dL (70-110); Sodium 140 mmol/L (135-145)
--- NOTE | 2024-05-04 13:29 | P.PN ---
Subjective Progress Note Date: 05/04/24 Patient was initially seen by Dr. Gomes. Please refer to her previous note for details. Patient is a 64-year-old male came with possible TIA. Dr. Gomes did not believe that he has TIA. Patient did not eat or drink anything all day. He became dizzy and off balance. Also reportedly had some slurred speech. Patient complains of "dry mouth". Orthostatics were ordered. Patient has hyperlipidemia, high-dose statins were recommended. I spoke to the patient, who mentions that yesterday he was sitting at a birthday libertarian of his granddaughter when at around 3 PM, he felt like generalized weakness, disorientation. He got up and when he tried to walk, felt wobbly and was almost going down on the floor but caught himself on the chair. There was no associated slurred speech, facial droop any problem with the vision or any numbness or tingling focal weakness. He states that his face was red and his head was pounding behind the eyes. He checked his blood pressure was 175/86. He asked his son to take him home. This morning at 10 AM he again felt wobbly therefore he was brought to the hospital. Patient states that he vapes marijuana and the last time he did was about 3 days prior to arrival. It helps him being asleep. He does not have any pacemaker. On Saturday, he did drink bourbon and coke but was not too much. He does drink this much off and on. Objective - Vital Signs Vital signs: Vital Signs Temp 97.5 F L 05/04/24 07:20 Pulse 64 05/04/24 07:20 Resp 16 05/04/24 07:20 BP 134/73 05/04/24 07:20 Pulse Ox 97 05/04/24 07:20 FiO2 100 05/03/24 16:10 Intake & Output 05/03/24 05/04/24 05/04/24 18:59 06:59 18:59 Intake Total 600 240 Balance 600 240 Intake: Oral 600 240 Other: # Voids 3 2 - Exam Patient is an elderly male, in no acute distress. Patient is alert awake oriented to time place and person. Speech and language functions are normal. Patient can name and repeat very well. No aphasia or dys arthria. Attention, concentration and fund of knowledge is adequate. On cranial nerve examination, pupils are equal, round and reacting to light, visual hooker are full on confrontation, with no neglect on double simultaneous stimulation. Extraocular muscles are intact with no nystagmus. Face is symmetric, tongue protrudes to the midline. Palatal elevation and sensation normal, hearing and shoulder shrug normal, facial sensation normal. On muscle strength testing, there is no pronator drift and the strength is normal in arms and legs distally and proximally. Sensory to touch is equal with no neglect on double simultaneous stimulation. Cerebellar function showed no ataxia for [id number] testing. No dysdiadochokinesia. No ataxia for [id number] testing on either side. Tone and bulk of muscles normal. Gait deferred.. On general examination, there is no carotid bruit or murmur, S1-S2 audible. Chest is clear on consultation. Abdomen is soft nontender. No organomegaly, bowel sounds present. Peripheral pulses are present. No peripheral edema. - Labs CBC & Chem 7: 05/02/24 20:46 05/04/24 05:01 Labs: Abnormal Lab Results - Last 24 Hours (Table) 05/02/24 Range/Units 20:46 Triglycerides 415.00 H (0.00-149.00) mg/dL Cholesterol 257.00 H (0.00-200.00) mg/dL LDL Cholesterol Direct 153.00 H (0.00-129.00) mg/dL VLDL Cholesterol, Calc 83.00 H (5.00-40.00) mg/dL Assessment and Plan Assessment: 1. The patient is a 64-year-old male who presented to the emergency department with feelings of dizziness, ataxia, dry mouth and disorientation, after not eating or drinking all day long. Neurology is asked to see the patient for evaluation of possible TIA. This morning, the patient reports continuing to feel somewhat ataxic and off balance. Likely the patient's symptoms are secondary to dehydration. At this point in time, TIA cannot be specifically ruled out and still remains in the differential diagnosis 2. History of hypertension. Patient came with elevated blood pressure of 170/86, which may be the cause of dizziness. 3. Hyperlipidemia-total cholesterol 257, triglycerides 415 4. History of back pain 5. Ex tobacco use Plan: 1. Lipid panel with cholesterol 257, LDL 153, HDL 83, triglycerides 415. High- dose statin should be initiated, started at Lipitor 40 mg daily. 2. Orthostatic vitals should be checked, and came back negative. 3. Consider dietary/nutrition consultation regarding patient's habit of not eating all day 4. TSH normal 0.748 with free T4 0.80. Hemoglobin A1c 5.5. All normal. 5. CTA showed no evidence of dissection of the cervical internal carotid arteries or vertebral arteries. No evidence of significant stenosis at the carotid bifurcations. No evidence of intracranial high-grade stenosis or intracranial aneurysm. 6. 2D echo revealed LVEF is 55 to 60%. No obvious regional wall motion abnormalities. No significant valvular dysfunction. Normal left atrial size. 7. Patient has been taking aspirin 81 mg daily for 4 to 5 years (although not mentioned in the home medication list). Patient's dose of aspirin increased to 325 mg. 8. Optimize control of blood pressure. Orthostatics were checked, which were negative. Recommend control of vascular risk factors. No embolic source identified. Neurologically clear for discharge with above recommendations.
[2024-05-04 14:10] VITALS: BP 148/66; PULSE 76; TEMP 97.9
[2024-05-04] MEDS: METOPROLOL SUCCINATE (ER) 25 MG TAB.ER.24H PO STA (15:17)
[2024-05-04] MEDS ORDERED: ATORVASTATIN 40 MG TAB PO SCH (21:00)
--- NOTE | 2024-05-04 23:17 | P.DS ---
Providers Date of admission: 05/02/24 21:47 Attending physician: Nicolas Clayton Consults: 05/02/24 21:47 Consult Physician Routine Consulting Provider: Alessia Gomes Consult Reason/Comments: tia Do you want consulting provider notified?: Yes Primary care physician: Cristy Gavin Hospital Course: Diagnoses: 1. Acute onset dizziness/extremity numbness 2. Substance abuse; urine drug screen is positive for opiates, barbiturates and marijuana; patient is currently on Almo; uses vape pens for sleep; patient admits using Fioricet. Patient counseled against using unnecessarily this medication and he agrees 3. Hypertension; metoprolol 25 mg daily; amlodipine/Benzepril 540 milligram daily 4. Hyperlipidemia; Tricor 145 mg daily 5. Gastroesophageal reflux disease; Protonix 40 mg daily 6. Hyperuricemia/gout; Zyloprim 300 mg hodan Hospital course: 64-year-old male to the ER for evaluation patient presents today for evaluation regards to weakness confusion and not feeling well. Patient states that he was in the birthday [employer] when he started feeling confused and generally weak,. Also was feeling wobbly. He went home with help with his family. Next morning he was feeling the same so decided to come to the emergency room. Eventually the symptoms completely resolved and currently he is back to baseline fully awake and oriented with no confusion or weakness or any other symptoms. Workup was unremarkable with negative orthostatic, TSH, alcohol level Urine drug screen was positive for opiates, barbiturates and marijuana. Patient admits using marijuana and taking Almo for his back pain. He was using also Fioricet 1 day earlier from his for his headache. Ejection fraction 55 to 60%, CT of the brain is negative for acute process as well as CTA of the head and neck. Patient evaluated by neurologist. He was taking aspirin 81 mg at home this was increased to 162 upon discharge with risk benefits explained for the patient and he agrees. Also send was present throughout the encounter about the patient request and he agrees with the management plan Most likely patient confusion states and generalized weakness and other symptoms as above as multifactorial related to using of pain medication, barbiturates as well as marijuana and drinking a lot of alcohol. However TIA cannot be completely excluded but workup was unremarkable. Aspirin was increased as above and patient was instructed to follow-up outpatient and he agrees I talked to the patient extensively while the son was at bedside to do MRI and patient with risk benefits explained. Patient declines because it does not guaranteed to be done today and he does not want to stay in the hospital and he wants to follow-up outpatient to do the brain MRI test. He told me he is going to follow-up with a neurologist and PCP for MRI of the brain. And that he is claustrophobic and is going to ask his primary doctor about medication first for his claustrophobia. Get up and go test is normal. No headache dizziness or any other complaint Patient was cleared for discharge by neurologist Problems and management plan were discussed with the patient and he verbalized understanding and acceptance Patient was found stable and can be discharged home in guarded prognosis however he needs follow-up as an outpatient. Patient was instructed to follow up with PCP Dr. Gavin within one week and patient agrees Patient was instructed to follow-up with neurologist in [address] ashly Edmond suggested neurologist in 1 week and he agrees. Physical exam Gen: patient is a AAOx3, no distress CVS: S1-S2, RRR, no murmur Lungs: B/L CTA, no wheezing Abdomen: soft, no distention, no tenderness, positive bowel sounds Extremity: no leg edema or induration Time spent more than 35 minutes Patient Condition at Discharge: Serious Plan - Discharge Summary New Discharge Prescriptions: New Atorvastatin [Lipitor] 40 mg PO HS #30 tab Metoprolol Succinate [Metoprolol Succinate ER] 50 mg PO DAILY #60 tab Aspirin [Durlaza] 162.5 mg PO DAILY #30 cap Continue Pantoprazole [Protonix] 40 mg PO DAILY Isosorbide Mononitrate ER [Imdur] 30 mg PO DAILY amLODIPine BESYLATE/BENAZEPRIL [amLODIPine BESYLATE/BENAZEPRIL 5-40 mg] 1 cap PO DAILY allopurinoL [Zyloprim] 300 mg PO DAILY HYDROcodone/APAP 7.5-325MG [Almo 7.5-325] 1 tab PO TID PRN PRN Reason: Pain Fenofibrate Nanocrystallized [Tricor] 145 mg PO DAILY Discontinued Metoprolol Succinate (ER) [Toprol XL] 25 mg PO DAILY Discharge Medication List Fenofibrate Nanocrystallized [Tricor] 145 mg PO DAILY 05/03/24 [History] HYDROcodone/APAP 7.5-325MG [Almo 7.5-325] 1 tab PO TID PRN 05/03/24 [History] Isosorbide Mononitrate ER [Imdur] 30 mg PO DAILY 05/03/24 [History] Pantoprazole [Protonix] 40 mg PO DAILY 05/03/24 [History] allopurinoL [Zyloprim] 300 mg PO DAILY 05/03/24 [History] amLODIPine BESYLATE/BENAZEPRIL [amLODIPine BESYLATE/BENAZEPRIL 5-40 mg] 1 cap PO DAILY 05/03/24 [History] Aspirin [Durlaza] 162.5 mg PO DAILY #30 cap 05/04/24 [Rx] Atorvastatin [Lipitor] 40 mg PO HS #30 tab 05/04/24 [Rx] Metoprolol Succinate [Metoprolol Succinate ER] 50 mg PO DAILY #60 tab 05/04/24 [Rx] Follow up Appointment(s)/Referral(s): Cristy Gavin DO [Primary Care Provider] - 1-2 days Maya Spain MD [REFERRING] - 1 Week (Neurologist) Maurizio Cruz MD [Medical Doctor] - 1 Week (Neurologist) Patient Instructions/Handouts: Transient Ischemic Attack (GEN), Hypertension (DC) Activity/Diet/Wound Care/Special Instructions: Heart healthy diet Activity is restricted till you see your doctor Please follow-up with your automotive glazier Dr. Gonzalez in 1 week, please call to make an appointment. You have the contact information as informed the medical team Discharge Disposition: HOME SELF-CARE
[2024-05-05] MEDS ORDERED: METOPROLOL SUCCINATE (ER) 50 MG TAB.ER.24H PO SCH (09:00)
== END 2024-05-04 15:45 | disposition home or self-care (01) ==
LOC: EC 20:18 → 6NMEDSUR 21:47
PROVIDERS: ADMIT Hospitalist; ATTEND Hospitalist
DX: R42 Dizziness and giddiness (principal); R20.0 Anesthesia of skin; F19.10 Other psychoactive substance abuse, uncomplicated; I10 Essential (primary) hypertension; E78.5 Hyperlipidemia, unspecified; K21.9 Gastro-esophageal reflux disease without esophagitis; M10.9 Gout, unspecified; F40.240 Claustrophobia; G47.30 Sleep apnea, unspecified; Z79.82 Long term (current) use of aspirin; Z79.899 Other long term (current) drug therapy
CPT/HCPCS: 99285; 36415; 93005; 93306; 97161; 97165; 92610; 92523; 84439; 80061; 80053; 80048; 82550; 84443; 84484; 85025; 85610; 85730; 81003; 83721; 80306; 83036; 71046; 70496; 70450; 70498; G0378 ×3; G0480; Q9967; 80320